=== PATIENT | female | born 1985 | race Caucasian/White ===

== ENCOUNTER 2017-12-17 01:39 | Outpatient (CLI) | payer SELFPAY ==
[2017-12-17 08:38] LABS: Kit/Specimen SENT
== END 2017-12-17 01:59 ==
PROVIDERS: PCP Nurse Practitioner
DX: E28.319 Asymptomatic premature menopause (principal); E03.9 Hypothyroidism, unspecified; R53.83 Other fatigue; E88.1 Lipodystrophy, not elsewhere classified
CPT/HCPCS: 36415

== ENCOUNTER 2022-02-28 13:39 | Outpatient (REF) | payer BC, SELFPAY ==
--- NOTE | 2022-02-28 12:30 | PAPFT_PTH ---
PATIENT: Blanquita Dean LOC: [facility] U#:[id number] AGE/SX: 37/F ROOM: RE02/28/[address]: Dori Carmichael APRN : 1985 BED: DIS: 02/28/2022 SPEC #: [id number] RECD: 02/28/22 18:06 STATUS: VISHAL RECortney #: [id number] KINDRA: 02/28/22 12:[address]: Dori Carmichael DEPT: [facility] Cytology RECD BY: Xiomara Nuñez Tissues: 1 - CX/ENDOCX FOR PAP SMEARS Procedures: PAP THIN PREP/UVM Screening HPV DNA PROBE Comments: [id number]
== END 2022-02-28 13:40 | disposition home or self-care (01) ==
LOC: LBN 13:39
PROVIDERS: PCP Nurse Practitioner Adult Health; Referring Provider Nurse Practitioner Adult Health; Visit Provider Nurse Practitioner Adult Health
DX: Z12.4 Encounter for screening for malignant neoplasm of cervix (principal); Z11.51 Encounter for screening for human papillomavirus (HPV)
CPT/HCPCS: 88142; 87624

== ENCOUNTER 2024-05-14 02:44 | Outpatient (CLI) | payer BC, SELFPAY ==
[2024-05-14 08:46] LABS: Kit/Specimen SENT
== END 2024-05-14 02:45 | disposition home or self-care (01) ==
LOC: LBO 02:45
PROVIDERS: PCP Nurse Practitioner Adult Health; Visit Provider Nurse Practitioner Adult Health
DX: N95.1 Menopausal and female climacteric states (principal)
CPT/HCPCS: 36415; 80053; 80061; 82306; 84402; 84403; 82172; 82607; 82626; 82664; 82670; 83001; 83002; 83036; 84144; 84439; 84443; 84481; 85025; 85045

== ENCOUNTER 2024-05-26 00:49 | Outpatient (CLI) | payer BC, SELFPAY ==
--- NOTE | 2024-05-26 07:30 | DI.MAMMO_ITS ---
Exam(s) MAMMO SCREENING EXAM: MAMMO SCREENING CLINICAL HISTORY: screening,Z12.39 TECHNIQUE: Bilateral full field digital CC and MLO mammographic images were obtained with 3D tomosyn thesis and utilizing computer aided detection (CAD). COMPARISON: This is a baseline examination. There are no priors for comparison. FINDINGS: Masses/Architectural Distortion: No suspicious masses or areas of architectural distortion are presen t. Microcalcifications: No suspicious pleomorphic-type are seen. Skin Thickening/Nipple Retraction: None. IMPRESSION: 1. No evidence for malignancy is seen at this time. 2. Unless there is more urgent need, screening mammography is recommended, as per [employer] guidelines. BI-RADS Category 1 - Negative Breast Density - Category C - Heterogeneously dense Breast density category C or D implies that the patient has dense breast tissue. Dense breast tissue is very common and is not abnormal but dense breast tissue can make it harder to find cancer on a ma mmogram. Also, dense breast tissue may increase their breast cancer risk. This information about the result of the mammogram report was provided to the patient to raise their awareness. Use this report when you speak with the patient about their risks for breast cancer, which includes their family hist ory. At that time, you may recommend for more screening tests (Ultrasound or MRI) as they might be us eful based on their risk. A negative radiographic report should not delay biopsy if a dominant or clinically suspicious mass is present. Up to ten percent of cancers are not identified on mammography. A negative report may reinforce clinical impression. Adenosis and dense breasts may obscure an underlying neoplasm. False positive reports average 6 to 10%. Patient will receive a letter notifying them of these results.
== END 2024-05-26 01:09 ==
LOC: DI 00:50
PROVIDERS: PCP Nurse Practitioner Adult Health; Visit Provider Nurse Practitioner Adult Health
DX: Z12.31 Encounter for screening mammogram for malignant neoplasm of breast (principal); R92.333 Mammographic heterogeneous density, bilateral breasts
CPT/HCPCS: 77063; 77067

== ENCOUNTER 2024-11-26 04:15 | Outpatient (CLI) | payer BC, SELFPAY ==
[2024-11-27 09:59] LABS: TSH 0.76 uIU/mL (0.36-3.74)
[2024-11-27 10:01] LABS: Vitamin B12 995 pg/mL (193-986); Vitamin D 25 Total 53 ng/mL (30-100)
[2024-11-27 10:19] LABS: Iron 95 ug/dL (50-170)
[2024-11-27 18:23] LABS: T3,Free 4.4 pg/mL (2.8-5.3)
[2024-11-27 20:04] LABS: FSH 23.2 mIU/mL (See Note); LH 3.8 mIU/mL (See Note)
[2024-12-04 15:43] LABS: Testosterone, Free 1.29 ng/dL (<0.13-0.98)
== END 2024-11-26 04:16 | disposition home or self-care (01) ==
PROVIDERS: PCP Nurse Practitioner Adult Health; Visit Provider Anesthesiology
DX: N95.1 Menopausal and female climacteric states (principal)
CPT/HCPCS: 36415; 82306; 82627; 84402; 84403; 82607; 82670; 83001; 83002; 83540; 84144; 84270; 84439; 84443; 84481

== ENCOUNTER 2025-02-16 00:24 | Outpatient (CLI) | payer BC, SELFPAY ==
[2025-02-16 12:14] LABS: Kit/Specimen SENT
== END 2025-02-16 00:25 | disposition home or self-care (01) ==
LOC: LBO 00:24
PROVIDERS: PCP Nurse Practitioner Adult Health; Visit Provider Anesthesiology
DX: L02.91 Cutaneous abscess, unspecified (principal)
CPT/HCPCS: 36415